=== PATIENT | female | born 1955 | race Two or more races ===

== ENCOUNTER 2022-02-03 08:10 | Day surgery (SDC) | payer OTHER ==
[2022-02-03] MEDS ORDERED: IRON SUCROSE INJECTION 200 MG in SODIUM CHLORIDE 100 ML IVPB ONE (10:00)
[2022-02-03 10:01] VITALS: TEMP 98.1
[2022-02-03 12:21] VITALS: BP 124/72; PULSE 66
== END 2022-02-03 11:15 | disposition home or self-care (01) ==
LOC: JONCCHEMO 08:10
PROVIDERS: ATTEND Internal Medicine Hematology & Oncology
PROC: 3E033GC Introduction of Other Therapeutic Substance into Peripheral Vein, Percutaneous Approach (ICD-10-PCS; principal; 2022-02-03)
DX: E61.1 Iron deficiency (principal)
CPT/HCPCS: 96365; J1756

== ENCOUNTER 2022-02-10 06:36 | Day surgery (SDC) | payer OTHER ==
[2022-02-10] MEDS ORDERED: IRON SUCROSE INJECTION 200 MG in SODIUM CHLORIDE 100 ML IVPB ONE (10:00)
[2022-02-10 15:00] VITALS: TEMP 97.9
[2022-02-11 07:33] VITALS: BP 119/74; PULSE 74
== END 2022-02-10 13:20 | disposition home or self-care (01) ==
LOC: JONCNONCHE 06:36
PROVIDERS: ATTEND Internal Medicine Hematology & Oncology
PROC: 3E033GC Introduction of Other Therapeutic Substance into Peripheral Vein, Percutaneous Approach (ICD-10-PCS; principal; 2022-02-10)
DX: D50.9 Iron deficiency anemia, unspecified (principal)
CPT/HCPCS: 96365; J1756

== ENCOUNTER 2022-02-17 07:55 | Day surgery (SDC) | payer OTHER ==
[2022-02-17] MEDS ORDERED: IRON SUCROSE INJECTION 200 MG in SODIUM CHLORIDE 100 ML IVPB ONE (10:00)
[2022-02-17 18:11] VITALS: BP 136/79; PULSE 68; TEMP 97.9
== END 2022-02-17 11:20 | disposition home or self-care (01) ==
LOC: JONCNONCHE 07:55
PROVIDERS: ATTEND Internal Medicine Hematology & Oncology
PROC: 3E033GC Introduction of Other Therapeutic Substance into Peripheral Vein, Percutaneous Approach (ICD-10-PCS; principal; 2022-02-17)
DX: D50.9 Iron deficiency anemia, unspecified (principal)
CPT/HCPCS: 96365; J1756

== ENCOUNTER 2022-02-24 08:32 | Day surgery (SDC) | payer OTHER ==
[2022-02-24] MEDS ORDERED: IRON SUCROSE INJECTION 200 MG in SODIUM CHLORIDE 100 ML IVPB ONE (10:00)
[2022-02-24 18:01] VITALS: TEMP 97.7
[2022-02-24 18:05] VITALS: BP 122/73; PULSE 74
== END 2022-02-24 15:40 | disposition home or self-care (01) ==
LOC: JONCNONCHE 08:32
PROVIDERS: ATTEND Internal Medicine Hematology & Oncology
PROC: 3E033GC Introduction of Other Therapeutic Substance into Peripheral Vein, Percutaneous Approach (ICD-10-PCS; principal; 2022-02-24)
DX: D50.9 Iron deficiency anemia, unspecified (principal)
CPT/HCPCS: 96365; J1756